=== PATIENT | female | born 1960 | race Caucasian/White ===

== ENCOUNTER → 2017-01-11 | Outpatient (CLI) | payer OTHER ==
[~2017-01-11] MED LIST: NAPR-576 PO; OSEL75 PO; PROM6.257 PO; ZITHTAB PO; ZOFR4TAB3 SL
[2017-01-11 08:31] LABS: RHEUMATOID FACTOR TRIGGER LESS THAN 10.0 IU/ML (0.0-14.9)
== END ==
LOC: CLAB 07:34
DX: M35.9 Systemic involvement of connective tissue, unspecified (principal)
CPT/HCPCS: 36415; 85652; 86038; 86140; 86430

== ENCOUNTER 2017-03-03 21:26 | Emergency (ER) | payer OTHER ==
[~2017-03-03 21:26] MED LIST changes: -ZITHTAB PO
[2017-03-03 21:47] VITALS: BP 149/95; PULSE 72; RESP 20; TEMP 98.3
[2017-03-03] MEDS ORDERED: ZITHTAB PO (22:00)
--- NOTE | 2017-03-03 22:00 | PD ---
HPI Chief Complaint: Cold / Flu Symptoms Time Seen by Provider: 21:40 Travel History International Travel<30 days: No Contact w/Intl Traveler<30days: No Traveled to known affect area: No History of Present Illness HPI 56-year-old female presents emergency department for evaluation of cough for 2 weeks. Patient reports she's had URI type symptoms approximately 10-14 days. She reports symptoms slightly improved and then returned with a productive cough for the last 5 days. She reports some shortness of breath with coughing episodes. She denies fevers or chills. No chest pain. No orthopnea. PFSH Past Medical History Narrative Medical Significant for hypertension and asthma Asthma: Yes Diminished Hearing: No Immunizations Current: No Tetanus Vaccination: Unknown Influenza Vaccination: Yes Past Surgical History Hysterectomy: Yes Other Surgery: Yes (LEFT SHOULDER) Social History Alcohol Use: Yes (SOCIAL) Tobacco Use: No (QUIT 1 1/2 YR AGO) Substance Use: No Allergies-Medications (Allergen,Severity, Reaction): Coded Allergies: No Known Allergies (Verified , 04/08/16) Reported Meds & Prescriptions Reported Meds & Active Scripts Active Zithromax Z-Nickolas (Azithromycin) 250 Mg Dspk 250 Mg PO DIRECTED 500 MG (2 tabs) day 1, then 1 tab days 2-5. Zofran ODT (Ondansetron HCl) 4 Mg Tab 4 Mg SL Q6H PRN FOR NAUSEA/VOMITING Naproxen 500 Mg Tab 500 Mg PO BID PRN Phenergan W/Codeine (Promethazine W/Codeine) 6.25-10 mg/5 ml Ml 5 Ml PO Q6H PRN Reported Tamiflu 75 mg (Oseltamivir Phosphate) 75 Mg Cap 1 Cap PO BID 5 Days Review of Systems Except as stated in HPI: all other systems reviewed are Neg Physical Exam Narrative GENERAL: -Alert well-appearing female. In no acute distress SKIN: Focused skin assessment warm/dry. HEAD: Atraumatic. Normocephalic. EYES: Pupils equal and round. No scleral icterus. No injection or drainage. ENT: No nasal bleeding or discharge. Mucous membranes pink and moist. NECK: Trachea midline. No JVD. CARDIOVASCULAR: Regular rate and rhythm. No murmur appreciated. RESPIRATORY: No accessory muscle use. Clear to auscultation. Breath sounds equal bilaterally. GASTROINTESTINAL: Abdomen soft, non-tender, nondistended. Hepatic and splenic margins not palpable. MUSCULOSKELETAL: No obvious deformities. No clubbing. No cyanosis. No edema. NEUROLOGICAL: Awake and alert. No obvious cranial nerve deficits. Motor grossly within normal limits. Normal speech. PSYCHIATRIC: Appropriate mood and affect; insight and judgment normal. Data Data Last Documented VS Vital Signs Date Time Temp Pulse Resp B/P Pulse Ox O2 Delivery O2 Flow Rate FiO2 03/03/17 21:53 20 98 03/03/17 21:47 98.3 72 149/95 [facility] Medical Decision Making Medical Screen Exam Complete: Yes Emergency Medical Condition: Yes Medical Record Reviewed: Yes Differential Diagnosis Bronchitis, upper is joint infection, pneumonia Narrative Course 56-year-old female presents emergency department for evaluation of cough for 2 weeks. Patient reports she's had URI type symptoms approximately 10-14 days ago she reports symptoms slightly improved and then returned with a productive cough for the last 5 days. She reports some shortness of breath with coughing episodes. She denies fevers or chills. No chest pain. On exam patient has no adventitious breath sounds. She'll be treated with CPAP. Diagnosis Primary Impression: Bronchitis Referrals: Primary Care Physician Departure Forms: Tests/Procedures, Work Release Enter return to work date: Mar 05, 2017 Scripts Azithromycin (Zithromax Z-Nickolas)250 Mg [id number] Mg PO DIRECTED #1 DSPK Ref 0 500 MG (2 tabs) day 1, then 1 tab days 2-5. Prov:Marcelina Manzo 03/03/17 Disposition: 01 DISCHARGE HOME Condition: Stable Marcelina Manzo Mar 03, 2017 22:00
== END 2017-03-03 22:15 | disposition home or self-care (01) ==
LOC: PHEFT 21:26
DX: J40 Bronchitis, not specified as acute or chronic (principal); I10 Essential (primary) hypertension; Z87.891 Personal history of nicotine dependence
CPT/HCPCS: 99283